=== PATIENT | female | born 1970 | race African-American/Black ===

== ENCOUNTER → 2020-10-28 | Outpatient (CLI) | payer BC ==
--- NOTE | 2020-10-28 16:34 | KCIC ---
History: Knee pain with intermittent swelling Comparison: None. Sequences: Multiplanar, multisequence MRI images obtained through the right knee without intravenous contrast. Findings: Quadriceps and patellar tendons are intact. There is prepatellar edema soft tissues. The anterior cruciate ligament is intact. There is edema seen adjacent to the anterior and posterior cruciate ligament. Linear band of high T2 signal within the posterior cruciate ligament which could b e secondary to partial tearing but there are some intact fibers seen within. Tearing of the medial meniscus is identified including posterior horn and body with a small amount ex tending into the anterior horn as well. There is partial extrusion of the medial meniscus medially as well as free edge truncation and irregular morphology from the tearing. There is also tearing of the lateral meniscus involving the anterior horn, body and posterior horn extending to the articular deanna face. Edema is seen adjacent to the medial collateral ligament without evidence of full-thickness tear. Tricompartmental degenerative changes with cartilaginous defects as well as osteophyte formation. Small amount of edema is seen at the medial tibial plateau abutting the torn meniscus. There is some edema at the medial femoral condyle posteriorly. Small knee joint effusion is identified. Small amount of high T2 signal is seen within the popliteus tendon which could be from a low-grade pa rtial thickness tear. Popliteal fibular ligament is intact. Edema is seen adjacent to the lateral patellar retinaculum. T2 hyperintense region within the posterior aspect of the knee posterior to the anterior cruciate lig ament measuring up to about 29 x 17 mm with some septations within. Could be secondary to complex miguel nt fluid or septated cystic lesion in the area. Osseous structure adjacent to the tibial tubercle co uld be ossicle or sequela of Catracho-Schlatter. Impression: Multifocal tearing of the medial and lateral meniscus. Linear high T2 signal within the posterior cruciate ligament which could be secondary to partial thic kness tearing. This only affects of a minority of the fibers with the majority of the ligament intact without evidence of full-thickness full width rupture. Tricompartmental degenerative changes with cartilaginous loss as well as osteophyte formation. There is also some mild marrow edema which could be reactive to degenerative changes. Fluid and edema seen adjacent to the medial collateral ligament which could be secondary to a sprain without evidence of high-grade tear. Complex cystic structures are seen at the posterior aspect of the knee. Differential considerations w ould include complex effusion with septations within or a cystic lesion such as complex parameniscal cyst formation. Electronically signed by: Nicholas Blackwell MD (10/28/2020 4:31 PM) [id number]
== END ==
LOC: KCIC MRI 15:11
PROVIDERS: ATTEND Physician Assistant
DX: S83.241A Other tear of medial meniscus, current injury, right knee, initial encounter (principal); M17.11 Unilateral primary osteoarthritis, right knee; M25.78 Osteophyte, vertebrae
CPT/HCPCS: 73721